=== PATIENT | female | born 1980 | race Caucasian/White ===

== ENCOUNTER → 2019-01-20 13:51 | Outpatient (CLI) | payer OTHER, SELFPAY ==
--- NOTE | 2019-01-20 13:53 | DI.RAD.S_ITS ---
PROCEDURE: XR LUMBAR SPINE MIN 4V INDICATIONS: r/o bony abnormality TECHNIQUE: 5 views of the lumbar spine were acquired. COMPARISON: None. FINDINGS: Bones: 5 nonrib-bearing vertebrae are present. There is normal bony alignment. No vertebral body compression fractures. Mild multilevel lumbar spondylosis. Degenerative endplate changes of the anterior, superior endplate at L3 and L4. No suspicious bony lesions. Soft tissues: Overlying bowel gas pattern is normal. No suspicious soft tissue calcifications. Oblique images: No pars defects. IMPRESSION: No pars defect identified. Lumbar spine without acute radiographic abnormality. Mild multilevel lumbar spondylosis. Dictated by: Tian Bunn M.D. on 01/20/2019 at 15:48 Approved by: Tian Bunn M.D. on 01/20/2019 at 15:54
== END ==
PROVIDERS: PCP Family Medicine; Visit Provider Physician Assistant
DX: M54.5 Low back pain (principal); M47.816 Spondylosis without myelopathy or radiculopathy, lumbar region
CPT/HCPCS: 72110

== ENCOUNTER → 2019-03-23 12:37 | Outpatient (CLI) | payer BC, SELFPAY ==
[2019-03-23 16:16] LABS: Follicle Stimulating Hormone 8.73 mIU/mL
== END ==
PROVIDERS: PCP Family Medicine
DX: N95.1 Menopausal and female climacteric states (principal)
CPT/HCPCS: 36415; 83001

== ENCOUNTER → 2019-11-02 16:01 | Outpatient (CLI) | payer BC, SELFPAY ==
[2019-11-04 17:12] LABS: COVID19 Sendout Not Detected (Not Detect)
== END ==
PROVIDERS: PCP Family Medicine; Visit Provider Nurse Practitioner
DX: Z11.59 Encounter for screening for other viral diseases (principal); J02.9 Acute pharyngitis, unspecified
CPT/HCPCS: 87070; 87077; 87635

== ENCOUNTER → 2020-03-09 13:08 | Outpatient (CLI) | payer BC, SELFPAY ==
--- NOTE | 2020-03-09 13:12 | DI.RAD.S_ITS ---
PROCEDURE: XR KNEE RT 3V INDICATIONS: right knee pain TECHNIQUE: 3 views of the knee were acquired. COMPARISON: None. FINDINGS: Bones: No fractures or dislocations. No suspicious bony lesions. Soft tissues: No joint effusion. No suspicious soft tissue calcifications. IMPRESSION: Normal. Dictated by: Ish Banda M.D. on 03/09/2020 at 14:29 Approved by: Ish Banda M.D. on 03/09/2020 at 14:29
== END ==
PROVIDERS: PCP Family Medicine; Referring Provider Family Medicine; Visit Provider Family Medicine
DX: M25.561 Pain in right knee (principal)
CPT/HCPCS: 73562

== ENCOUNTER → 2021-01-30 13:18 | Outpatient (CLI) | payer BC, SELFPAY ==
[2021-01-30 16:04] LABS: Add Manual Diff / Slide Review NO; Basophils Absolute Auto 0 /uL (0-100); Basophils Percent Auto 0.4 % (0-2); Eosinophils Absolute Auto 100 /uL (0-450); Eosinophils Percent Auto 1.9 % (2-4); Hemoglobin 13.4 g/dL (12.0-16.0); Lymphocytes Absolute Auto 1700 /uL (1100-4500); Lymphocytes Percent Auto 25.1 % (25-40); Mean Corpuscular HGB Conc 34.3 % (30-36); Mean Corpuscular Hemoglobin 32.2 PG (26-34); Monocytes Absolute Auto 600 /uL (0-900); Monocytes Percent Auto 9.3 % (3-14); Neutrophils Absolute Auto 4300 /uL (1500-7000); Neutrophils Percent Auto 63.3 % (50-75); Platelet Count 260 X10^3/uL (150-400); Red Blood Cell Count 4.15 X10^6/uL (4.0-5.2); Red Cell Distribution Width 12.8 % (11.6-14.8); White Blood Cell Count 6.8 X10^3/uL (4.5-11.0)
[2021-01-30 16:51] LABS: Alanine Aminotransferase 15 IU/L (<35); Albumin 4.4 g/dL (3.5-5.0); Albumin Globulin Ratio 1.4 (1.0-2.8); Alkaline Phosphatase 59 U/L (38-126); Aspartate Aminotransferase 24 IU/L (14-36); BUN Creatinine Ratio 11.6 (6-22); Bilirubin Total 0.6 mg/dL (0.2-1.3); Blood Urea Nitrogen 10 mg/dL (7-17); Calcium 9.5 mg/dL (8.4-10.2); Carbon Dioxide 30 mmol/L (22-32); Chloride 102 mmol/L (98-107); Cholesterol 163 mg/dL (140-199); Estimated Glomerular Filt Rate > 60.0 mL/min (>60); Globulin 3.1 g/dL (1.7-4.1); Glucose 88 mg/dL (70-100); HDL Cholesterol 86 mg/dL (40-60); HEMOLYSIS < 15 (0-50); LDL Cholesterol Calculated 67 mg/dL (<100); Potassium 4.4 mmol/L (3.4-5.1); Sodium 139 mmol/L (137-145); Total Protein 7.5 g/dL (6.3-8.2); Triglycerides 52 mg/dL (35-150)
[2021-01-30 17:23] LABS: TSH w/ Reflex to FT4 1.31 uIU/mL (0.47-4.68)
== END ==
PROVIDERS: PCP Family Medicine; Referring Provider Family Medicine; Visit Provider Family Medicine
DX: F41.9 Anxiety disorder, unspecified (principal); Z13.220 Encounter for screening for lipoid disorders
CPT/HCPCS: 36415; 80053; 80061; 84443; 85025

== ENCOUNTER → 2021-01-31 09:04 | Outpatient (CLI) | payer BC, SELFPAY ==
[2021-01-31 09:46] LABS: COVID19 -Nasal RAPID Negative (Negative)
[2021-01-31 11:10] LABS: Follicle Stimulating Hormone 6.02 mIU/mL; Luteinizing Hormone 7.07 mIU/mL
[2021-02-02 14:41] LABS: Estrogen 199 pg/mL (.)
[2021-02-07 18:45] LABS: % Free Progesterone 2.5 % (.); Free Progesterone 13 ng/dL (.); Progesterone, Serum 503 ng/dL (.)
== END ==
PROVIDERS: PCP Family Medicine; Referring Provider Family Medicine; Visit Provider Family Medicine
DX: Z20.822 Contact with and (suspected) exposure to COVID-19 (principal); R63.5 Abnormal weight gain; F41.9 Anxiety disorder, unspecified
CPT/HCPCS: 36415; 82672; 83001; 83002; 84144; 84999; 87635

== ENCOUNTER → 2022-06-22 11:08 | Outpatient (CLI) | payer OTHER, SELFPAY ==
[2022-06-22 12:14] LABS: Add Manual Diff / Slide Review NO; Basophils Absolute Auto 0 /uL (0-100); Basophils Percent Auto 0.6 % (0-2); Eosinophils Absolute Auto 100 /uL (0-450); Eosinophils Percent Auto 2.5 % (2-4); Hematocrit 38.8 % (36-46); Hemoglobin 13.3 g/dL (12.0-16.0); Lymphocytes Absolute Auto 1700 /uL (1100-4500); Lymphocytes Percent Auto 38.1 % (25-40); Mean Corpuscular HGB Conc 34.3 % (30-36); Mean Corpuscular Hemoglobin 32.1 PG (26-34); Mean Corpuscular Volume 93.6 fL (80-100); Monocytes Absolute Auto 400 /uL (0-900); Monocytes Percent Auto 8.2 % (3-14); Neutrophils Absolute Auto 2200 /uL (1500-7000); Neutrophils Percent Auto 50.6 % (50-75); Platelet Count 313 X10^3/uL (150-400); Red Blood Cell Count 4.15 X10^6/uL (4.0-5.2); Red Cell Distribution Width 12.8 % (11.6-14.8); White Blood Cell Count 4.4 X10^3/uL (4.5-11.0)
[2022-06-22 12:38] LABS: Alanine Aminotransferase 19 IU/L (<35); Albumin 4.6 g/dL (3.5-5.0); Albumin Globulin Ratio 1.4 (1.0-2.8); Alkaline Phosphatase 61 U/L (38-126); Aspartate Aminotransferase 22 IU/L (14-36); Bilirubin Total 0.9 mg/dL (0.2-1.3); Blood Urea Nitrogen 9 mg/dL (7-17); Calcium 8.7 mg/dL (8.4-10.2); Carbon Dioxide 29 mmol/L (22-32); Chloride 102 mmol/L (98-107); Cholesterol 202 mg/dL (140-199); Estimated Glomerular Filt Rate > 60 mL/min (>60); Globulin 3.2 g/dL (1.7-4.1); Glucose 110 mg/dL (70-100); HDL Cholesterol 89 mg/dL (40-60); HEMOLYSIS < 15 (0-50); LDL Cholesterol Calculated 101 mg/dL (<100); Potassium 3.8 mmol/L (3.4-5.1); Sodium 138 mmol/L (137-145); Total Protein 7.8 g/dL (6.3-8.2); Triglycerides 62 mg/dL (35-150)
[2022-06-22 13:09] LABS: TSH w/ Reflex to FT4 1.46 uIU/mL (0.47-4.68)
[2022-06-22 14:42] LABS: Follicle Stimulating Hormone 8.01 mIU/mL
[2022-06-28 20:38] LABS: Estrogen 73 pg/mL (.)
[2022-07-02 18:34] LABS: Percent Free Testosterone 1.11 % (0.50-2.80); Testosterone Free 0.12 ng/dL (0.10-0.85); Testosterone Total 10.6 ng/dL (.)
== END ==
PROVIDERS: PCP Family Medicine; Referring Provider Family Medicine; Visit Provider Family Medicine
DX: E78.89 Other lipoprotein metabolism disorders (principal); F41.9 Anxiety disorder, unspecified; R63.5 Abnormal weight gain; F41.8 Other specified anxiety disorders
CPT/HCPCS: 36415; 80053; 80061; 82627; 82672; 83001; 84402; 84403; 84443; 85025

== ENCOUNTER → 2023-04-11 14:44 | Outpatient (CLI) | payer OTHER, SELFPAY ==
[2023-04-11 16:02] LABS: Add Manual Diff / Slide Review NO; Basophils Absolute Auto 0 /uL (0-100); Basophils Percent Auto 0.3 % (0-2); Eosinophils Absolute Auto 100 /uL (0-450); Eosinophils Percent Auto 0.8 % (2-4); Lymphocytes Absolute Auto 2100 /uL (1100-4500); Lymphocytes Percent Auto 34.7 % (25-40); Mean Corpuscular HGB Conc 34.1 % (30-36); Mean Corpuscular Hemoglobin 32.4 PG (26-34); Monocytes Absolute Auto 400 /uL (0-900); Monocytes Percent Auto 7.2 % (3-14); Neutrophils Absolute Auto 3500 /uL (1500-7000); Platelet Count 293 X10^3/uL (150-400); White Blood Cell Count 6.2 X10^3/uL (4.5-11.0)
[2023-04-11 17:00] LABS: Alanine Aminotransferase 17 IU/L (<35); Albumin 4.7 g/dL (3.5-5.0); Albumin Globulin Ratio 1.4 (1.0-2.8); Alkaline Phosphatase 48 U/L (38-126); Aspartate Aminotransferase 24 IU/L (14-36); BUN Creatinine Ratio 14.1 (6-22); Bilirubin Total 1.1 mg/dL (0.2-1.3); Blood Urea Nitrogen 10 mg/dL (7-17); Calcium 9.1 mg/dL (8.4-10.2); Carbon Dioxide 27 mmol/L (22-32); Chloride 100 mmol/L (98-107); Cholesterol 182 mg/dL (140-199); Estimated Glomerular Filt Rate > 60 mL/min (>60); Globulin 3.4 g/dL (1.7-4.1); Glucose 87 mg/dL (70-100); HDL Cholesterol 77 mg/dL (40-60); HEMOLYSIS < 15 (0-50); LDL Cholesterol Calculated 94 mg/dL (<100); Potassium 3.8 mmol/L (3.4-5.1); Sodium 136 mmol/L (137-145); Total Protein 8.1 g/dL (6.3-8.2); Triglycerides 57 mg/dL (35-150)
== END ==
PROVIDERS: PCP Family Medicine; Referring Provider Family Medicine; Visit Provider Family Medicine
DX: R63.5 Abnormal weight gain (principal); F41.9 Anxiety disorder, unspecified; E78.89 Other lipoprotein metabolism disorders
CPT/HCPCS: 36415; 80053; 80061; 84443; 85025

== ENCOUNTER → 2023-04-25 11:59 | Outpatient (CLI) | payer OTHER, SELFPAY ==
--- NOTE | 2023-04-25 12:00 | DI.RAD.S_ITS ---
PROCEDURE: XR KNEE RT 3V INDICATIONS: right knee pain TECHNIQUE: 3 views of the knee were acquired. COMPARISON: [facility], , XR KNEE RT 3V, 03/09/2020, 13:13. FINDINGS: Bones: Mild degenerative changes. No displaced fracture or dislocation. Soft tissues: No joint effusion. No suspicious soft tissue calcifications. Slight lateral patellar tilt. IMPRESSION: Mild degenerative changes. Possible joint effusion. Slight lateral patellar tilt. If there is high concern for further derangement, consider MRI evaluation. Dictated by: Nic Garcia M.D. on 04/25/2023 at 14:43 Approved by: Nic Garcia M.D. on 04/25/2023 at 14:44
== END ==
PROVIDERS: PCP Family Medicine; Referring Provider Family Medicine; Visit Provider Family Medicine
DX: M25.561 Pain in right knee (principal)
CPT/HCPCS: 73562

== ENCOUNTER → 2024-09-24 15:49 | Outpatient (CLI) | payer BC, SELFPAY ==
[2024-09-24 16:16] LABS: Add Manual Diff / Slide Review NO; Hematocrit 39.0 % (36-46); Hemoglobin 13.3 g/dL (12.0-16.0); Lymphocytes Absolute Auto 2200 /uL (1100-4500); Mean Corpuscular HGB Conc 34.2 % (30-36); Mean Corpuscular Hemoglobin 32.9 PG (26-34); Mean Corpuscular Volume 96.3 fL (80-100); Platelet Count 336 X10^3/uL (150-400)
[2024-09-24 17:01] LABS: Alanine Aminotransferase 22 IU/L (<35); Albumin 4.5 g/dL (3.5-5.0); Albumin Globulin Ratio 1.3 (1.0-2.8); Alkaline Phosphatase 51 U/L (38-126); Blood Urea Nitrogen 10 mg/dL (7-17); Calcium 9.2 mg/dL (8.4-10.2); Carbon Dioxide 27 mmol/L (22-32); Chloride 100 mmol/L (98-107); Cholesterol 178 mg/dL (140-199); Estimated Glomerular Filt Rate > 60 mL/min (>60); Globulin 3.4 g/dL (1.7-4.1); Glucose 86 mg/dL (70-99); HDL Cholesterol 84 mg/dL (40-60); HEMOLYSIS 16 (0-50); Potassium 4.1 mmol/L (3.4-5.1); Sodium 135 mmol/L (137-145); Total Protein 7.9 g/dL (6.3-8.2); Triglycerides 76 mg/dL (35-150)
[2024-09-24 17:17] LABS: Follicle Stimulating Hormone 3.96 mIU/mL
[2024-09-24 17:33] LABS: TSH w/ Reflex to FT4 1.20 uIU/mL (0.47-4.68)
== END ==
PROVIDERS: PCP Family Medicine; Referring Provider Family Medicine; Visit Provider Family Medicine
DX: E78.89 Other lipoprotein metabolism disorders (principal); F41.9 Anxiety disorder, unspecified; E87.1 Hypo-osmolality and hyponatremia; N92.6 Irregular menstruation, unspecified; R63.5 Abnormal weight gain
CPT/HCPCS: 36415; 80053; 80061; 82670; 82677; 82679; 83001; 83002; 84144; 84402; 84403; 84443; 84999; 85025